=== PATIENT | male | born 1950 | race Asian ===

== ENCOUNTER 2022-06-30 06:33 | Day surgery (SDC) | payer BC ==
[~2022-06-30 06:33] MED LIST: Lactated Ringers 1,000 ML IV SCH
[2022-06-30] MEDS ORDERED: Lidocaine 2% 5 ML SDV ONE ×2 (07:27→07:34)
[2022-06-30] MEDS ORDERED: Propofol 200 MG/20 ML SDV ONE (07:33)
[2022-06-30] MEDS ORDERED: Dexmedetomidine 200 MCG/2 ML SDV ONE (07:34)
[2022-06-30] MEDS ORDERED: Magnesium Sulfate (4.06 MEQ/ML) 5 GM/10 ML SDV ONE (07:34)
[2022-06-30] MEDS ORDERED: Water For Injection, Sterile 20 ML ONE (07:35)
[2022-06-30] MEDS ORDERED: Lactated Ringers 1,000 ML IV SCH (08:30)
== END 2022-06-30 09:15 | disposition home or self-care (01) ==
LOC: MW.SDS 06:33
PROVIDERS: ATTEND Surgery
DX: Z12.11 Encounter for screening for malignant neoplasm of colon (principal); K29.50 Unspecified chronic gastritis without bleeding; M75.42 Impingement syndrome of left shoulder; E11.9 Type 2 diabetes mellitus without complications; J30.2 Other seasonal allergic rhinitis; G47.33 Obstructive sleep apnea (adult) (pediatric); E78.5 Hyperlipidemia, unspecified; Z86.16 Personal history of COVID-19; Z79.82 Long term (current) use of aspirin; Z79.84 Long term (current) use of oral hypoglycemic drugs; Z79.899 Other long term (current) drug therapy
CPT/HCPCS: 43239; 45380; J2704; J3475; J7120; 00813; 99100; J3490